=== PATIENT | female | born 1990 | race Hispanic/Latino ===

== ENCOUNTER 2017-02-25 08:08 | Emergency (ER) | payer MEDICAID ==
[2017-02-25] MEDS ORDERED: ONDANSETRON HCL 4 MG/2 ML VIAL ONE (09:15)
[2017-02-25] MEDS ORDERED: SODIUM CHLORIDE 0.9% 1000ML 1,000 ML IV ONE (09:15)
[2017-02-25] MEDS ORDERED: ACETAMINOPHEN EXTRA STRENGTH 500 MG TABLET ONE (09:37)
[2017-02-25 09:58] LABS: APPEARANCE,URINE Clear (CLEAR); BILIRUBIN,URINE Negative (NEGATIVE); COLOR,URINE Yellow (YELLOW); GLUCOSE, URINE (UA) Negative (NEGATIVE); KETONES,URINE >=160 mg/dL (NEGATIVE); LEUKOCYTE ESTERASE ,URINE Negative (NEGATIVE); NITRATE,URINE Negative (NEGATIVE); OCCULT BLOOD,URINE Negative (NEGATIVE); PROTEIN,URINE Negative (NEGATIVE); UROBILINOGEN,URINE 0.2 mg/dL (0.2-1.0)
[2017-02-25 10:30] LABS: BACTERIA,URINE Few /HPF (None Seen); MUCUS,URINE Moderate LPF (None Seen); RBC,URINE 0-1 /HPF (0-1); SQUAMOUS EPITHELIAL CELL,UR 30-50 /LPF (0-2)
== END 2017-02-25 11:01 | disposition home or self-care (01) ==
LOC: EDH 08:08
DX: J06.9 Acute upper respiratory infection, unspecified (principal); E86.0 Dehydration; Z87.442 Personal history of urinary calculi; Z90.49 Acquired absence of other specified parts of digestive tract
CPT/HCPCS: 81001; 87804 ×2; 96361; 96374; 99284; J2405; J7030

== ENCOUNTER 2022-08-28 18:07 | Emergency (ER) | payer MEDICAID ==
[~2022-08-28] VITALS: Ht 162.6 cm; Wt 85.7 kg
[2022-08-28] MEDS ORDERED: ONDANSETRON 4MG INJ IVP ONE (18:30)
[2022-08-28] MEDS ORDERED: 0.9%NACL 1000ML 1,000 ML IV ONE (18:30)
[2022-08-28] MEDS ORDERED: MORPHINE 4 MG SYG IVP ONE (18:30)
[2022-08-28 18:39] LABS: APPEARANCE,URINE CLEAR (CLEAR); BILIRUBIN,URINE NEGATIVE (NEGATIVE); COLOR,URINE LIGHT-YELLOW (YELLOW); GLUCOSE, URINE (UA) NEGATIVE (NEGATIVE); KETONES,URINE NEGATIVE (NEGATIVE); LEUKOCYTE ESTERASE ,URINE NEGATIVE Leu/uL (NEGATIVE); NITRATE,URINE NEGATIVE (NEGATIVE); OCCULT BLOOD,URINE LARGE (NEGATIVE); PH,URINE 6.5 (5.0-8.0); PROTEIN,URINE NEGATIVE (NEGATIVE); UROBILINOGEN,URINE 0.2 mg/dL (0.2-1.0)
[2022-08-28 18:45] LABS: HEMATOCRIT 42.7 % (36-48); MEAN CORPUSCULAR HEMOGLOBIN 28.8 pg (27.0-33.0); MEAN CORPUSCULAR HGB CONC 31.9 g/dL (32.0-36.0); MEAN CORPUSCULAR VOLUME 90.3 fL (79-99); PLATELET COUNT (AUTO) 368 K/uL (130-400); RED BLOOD CELL COUNT(AUTO) 4.73 MIL/uL (4.00-5.50); RED CELL DISTRIBUTION WIDTH 13.5 % (11.0-15.5); WHITE BLOOD COUNT (AUTO) 10.7 K/uL (4.8-10.8)
[2022-08-28 18:54] LABS: BACTERIA,URINE RARE /HPF (None Seen); MUCUS,URINE RARE LPF (None Seen); SQUAMOUS EPITHELIAL CELL,UR FEW /HPF (0-2)
[2022-08-28 18:55] LABS: BASOPHILS % (AUTO) 0.6 % (0.0-5.0); EOSINOPHILS % (AUTO) 1.2 % (0.0-8.0); LYMPHOCYTES % (AUTO) 22.3 % (21.0-51.0); MONOCYTES % (AUTO) 7.3 % (3.0-13.0); NEUTROPHILS % (AUTO) 68.2 % (40.0-77.0)
[2022-08-28 18:56] LABS: RBC,URINE 51-100 /HPF (0-1)
[2022-08-28 18:57] LABS: ALBUMIN 3.6 g/dL (3.5-5.0); CREATININE 0.8 mg/dL (0.5-1.5); POTASSIUM 3.8 mmol/L (3.5-5.1); TOTAL PROTEIN, SERUM 8.1 g/dL (6.0-8.3)
[2022-08-28] MEDS ORDERED: IBUP-2070 PO (20:27)
[2022-08-28] MEDS ORDERED: TAMS-1 PO (20:27)
[2022-08-28] MEDS ORDERED: TAMSULOSIN HCL 0.4 MG CAP.ER.24H PO SCH (20:30)
[2022-08-28] MEDS ORDERED: KETOROLAC 30MG VIAL (30MG/ML) IVP SCH (20:30)
[2022-08-28 21:56] VITALS: BP 128/74
== END 2022-08-28 21:57 | disposition home or self-care (01) ==
LOC: EDH 18:07
DX: N20.0 Calculus of kidney (principal); I10 Essential (primary) hypertension; Z90.49 Acquired absence of other specified parts of digestive tract
CPT/HCPCS: 99285; 74176; 96374; 96375; 96361; 80053; 85025; 81001; 81025; 36415; J7030; J2405; J2270; J1885

== ENCOUNTER 2023-03-14 21:00 | Emergency (ER) | payer MEDICAID ==
[~2023-03-14] VITALS: Ht 162.6 cm; Wt 88.5 kg
[~2023-03-14 21:00] MED LIST: IBUP-2070 PO; TAMS-1 PO
[2023-03-14 21:26] LABS: APPEARANCE,URINE CLEAR (CLEAR); BILIRUBIN,URINE NEGATIVE (NEGATIVE); COLOR,URINE LIGHT-YELLOW (YELLOW); GLUCOSE, URINE (UA) NEGATIVE (NEGATIVE); KETONES,URINE NEGATIVE (NEGATIVE); LEUKOCYTE ESTERASE ,URINE 25 Leu/uL (NEGATIVE); NITRATE,URINE NEGATIVE (NEGATIVE); OCCULT BLOOD,URINE MODERATE (NEGATIVE); PH,URINE 6.5 (5.0-8.0); PROTEIN,URINE 30 mg/dL (NEGATIVE); UROBILINOGEN,URINE 0.2 mg/dL (0.2-1.0)
[2023-03-14 21:27] LABS: ADD UA MICROSCOPIC YES
[2023-03-14 21:28] LABS: BACTERIA,URINE RARE /HPF (None Seen); MUCUS,URINE FEW LPF (None Seen); SQUAMOUS EPITHELIAL CELL,UR MOD /HPF (0-2)
[2023-03-14 21:59] LABS: BASOPHILS # (AUTO) 0.08 K/uL (0.00-0.20); BASOPHILS % (AUTO) 0.7 % (0.0-5.0); EOSINOPHILS # (AUTO) 0.23 K/uL (0.00-0.70); EOSINOPHILS % (AUTO) 2.1 % (0.0-8.0); HEMATOCRIT 39.6 % (36-48); IMMATURE GRANULOCYTE ABSOLUTE 0.05 K/uL (0-1); LYMPHOCYTES # (AUTO) 2.6 K/uL (1.0-4.8); MEAN CORPUSCULAR HEMOGLOBIN 29.1 pg (27.0-33.0); MEAN CORPUSCULAR HGB CONC 33.3 g/dL (32.0-36.0); MEAN CORPUSCULAR VOLUME 87.2 fL (79-99); MONOCYTES # (AUTO) 0.9 K/uL (0.1-1.0); MONOCYTES % (AUTO) 8.8 % (3.0-13.0); NEUTROPHILS # (AUTO) 6.9 K/uL (1.8-7.7); NEUTROPHILS % (AUTO) 63.9 % (40.0-77.0); PLATELET COUNT (AUTO) 344 K/uL (130-400); RED BLOOD CELL COUNT(AUTO) 4.54 MIL/uL (4.00-5.50); RED CELL DISTRIBUTION WIDTH 13.1 % (11.0-15.5); WHITE BLOOD COUNT (AUTO) 10.7 K/uL (4.8-10.8)
[2023-03-14 22:09] LABS: CREATININE 1.1 mg/dL (0.5-1.5); POTASSIUM 3.8 mmol/L (3.5-5.1)
[2023-03-14 22:13] LABS: ALBUMIN 3.4 g/dL (3.5-5.0); BILIRUBIN,TOTAL 0.3 mg/dL (0.2-1.0); TOTAL PROTEIN, SERUM 7.9 g/dL (6.0-8.3)
[2023-03-14] MEDS ORDERED: KETOROLAC 15MG/ML VIAL (15MG/ML) IV ONE (23:30)
[2023-03-14] MEDS ORDERED: ONDANSETRON 4MG INJ IVP ONE (23:30)
[2023-03-15] MEDS ORDERED: LIDOCAINE HCL-MPF 2% 5ML VIAL ONE (01:19)
[2023-03-15] MEDS ORDERED: 0.9%NACL 100ML IV ONE (02:00)
[2023-03-15] MEDS ORDERED: IBUP-1493 PO (02:42)
[2023-03-15] MEDS ORDERED: TAMS-1 PO (02:42)
[2023-03-15 02:43] VITALS: BP 142/87; PULSE 85; RESP 14; O2SAT 99
[2023-03-15] MEDS ORDERED: KETOROLAC 15MG/ML VIAL (15MG/ML) IV ONE (03:00)
== END 2023-03-15 02:47 | disposition home or self-care (01) ==
LOC: EDH 21:00
DX: N13.2 Hydronephrosis with renal and ureteral calculous obstruction (principal); I10 Essential (primary) hypertension; Z90.49 Acquired absence of other specified parts of digestive tract
CPT/HCPCS: 99285; 74176; 96374; 96375; 80053; 84703; 83690; 85025; 87088; 81001; 36415; J2405; J1885; J3490